=== PATIENT | female | born 2005 | race Caucasian/White ===

== ENCOUNTER 2025-03-09 15:29 | Emergency (ER) | payer SELFPAY ==
--- NOTE | ~2025-03-09 | CT_ITS ---
EXAMINATION: CT abdomen pelvis w con DATE: 03/09/2025 18:30 INDICATION: intractable nausea/vomiting TECHNIQUE: Computed tomography (CT) of the abdomen and pelvis was performed with 100 mL Omnipaque-350 intravenous contrast. Automated exposure control and iterative reconstruction technique were employe d. The dose-length product was 400.43 mGy-cm. COMPARISON: None. FINDINGS: Lower thorax: Unremarkable Liver: Normal. Biliary/Gallbladder: Gallbladder is normal. No bile duct dilation. Pancreas: No mass or duct dilation. Spleen: Normal. Adrenals:No mass. Kidneys: No suspicious mass, obstructing stone, or hydronephrosis. Contrast within the proximal colle cting systems which could obscure small calcifications. GI tract: Moderate distal esophageal and gastric wall edema. Mild diffuse colonic wall edema. No smal l or large bowel dilation. Normal appendix. Mesentery/Peritoneum: No ascites, mass, or free air. Retroperitoneum: No mass. Pelvis: Pelvic organs are within normal limits. IUD, in good position. Soft Tissues: Small uncomplicated appearing fat-containing umbilical hernia. Bones: No acute osseous finding. IMPRESSION: Moderate esophagitis/gastritis. Mild diffuse colonic wall edema as can be seen with colitis. Reviewed, dictated and finalized at location K.
[2025-03-09 15:32] VITALS: BP 118/77; PULSE 107; RESP 26; TEMP 36.3; O2SAT 99
[2025-03-09] MEDS: ONDANSETRON INJ 4 MG/2 ML VIAL IV PUSH (16:07)
[2025-03-09 16:09] LABS: Hematocrit 43.9 % (37.0-47.0); Hemoglobin 15.1 g/dL (12.0-15.0); Immature Granulocyte Percent A 0.4 % (0-0.5); Lymphocytes Absolute Auto 1.41 K/mm3 (0.9-3.2); Mean Corpuscular HGB Conc 34.4 g/dl (32-36); Mean Corpuscular Hemoglobin 29.8 pg (26-34); Mean Corpuscular Volume 86.6 fl (80-100); Nucleated Red Blood Cells Absolute Auto 0.000 K/mm3 (0.0-0.012); Nucleated Red Blood Cells Perc 0.0 % (0.0-0.2); Platelet Count Result 342 k/mm3 (150-375); Red Blood Count 5.07 M/mm3 (4.2-5.4); White Blood Count 9.0 K/mm3 (4.5-10.0)
[2025-03-09] MEDS: LACTATED RINGERS 1,000 ML 999 ML IV CONT (16:28)
[2025-03-09] MEDS: FAMOTIDINE 20 MG/2 ML VIAL IV PUSH (16:29)
[2025-03-09 16:34] LABS: Alanine Aminotransferase 42 U/L (6-35); Albumin Level 5.3 g/dL (3.5-5.1); Alkaline Phosphatase 89 U/L (38-126); Anion Gap 22 mmol/L (4-12); Aspartate Amino Transferase 38 U/L (14-36); Bilirubin,Total 1.1 mg/dL (0.2-1.3); Blood Urea Nitrogen 10 mg/dL (7-17); Calcium 10.5 mg/dL (8.4-10.2); Carbon Dioxide 10 mmol/L (22-30); Chloride 110 mmol/L (98-107); Estimated Glomerular Filt Rate > 60; Glucose 104 mg/dL (65-110); Lipase 29 U/L (23-300); Potassium 3.6 mmol/L (3.4-5.0); Sodium 142 mmol/L (137-145); Total Protein 8.9 g/dL (6.3-8.2)
[2025-03-09] MEDS: METOCLOPRAMIDE HCL INJ 10 MG/2 ML VIAL IV PUSH (17:05)
[2025-03-09 17:13] LABS: BEDSIDEPREGUCG Negative (Negative)
[2025-03-09 17:13] LABS: BEDSIDEPREGUCG Negative (Negative)
[2025-03-09 17:22] LABS: Add Urine Microscopic? YES; Appearance Urine Clear (Clear); Glucose Urine UA Negative (Negative); Leukocyte Esterase Ur Trace LEU/UL (Negative); Nitrate Urine Negative (Negative); Non Pathogenic Casts 0-2; Specific Grav Ur 1.023 (1.001-1.035)
[2025-03-09] MEDS: cefTRIAXone 2 GM in SODIUM CHLORIDE 0.9% IV 100 ML 200 ML IVPB (17:55)
[2025-03-09] MEDS: PANTOPRAZOLE SODIUM IV 40 MG VIAL IV PUSH (19:12)
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
== END 2025-03-09 19:17 | disposition home or self-care (01) ==
PROVIDERS: Emergency Medicine; Emergency Provider Emergency Medicine
DX: K20.90 Esophagitis, unspecified without bleeding (principal); R11.2 Nausea with vomiting, unspecified
CPT/HCPCS: 36415; 74177; 80053; 81001; 81025; 83690; 85025; 96361; 96365; 96375; 99284; J0696; J1200; J1790; J2405; J2470; J2765; J7120; Q9967

== ENCOUNTER 2025-04-01 18:24 | Emergency (ER) | payer OTHER, SELFPAY ==
--- NOTE | ~2025-04-01 | CT_ITS ---
History: Trauma PROCEDURE: CT lumbar spine without intravenous contrast. COMPARISON: None TECHNIQUE: Multiple contiguous axial images of the lumbar spine were performed without the administration of int ravenous contrast. DLP: 515 mGy-cm FINDINGS: Preservation of the alignment of the lumbar spine is noted. No disc space narrowing is identified. No acute compression fractures are present. No soft tissue abnormality is noted. Impression: No acute compression fracture or significant soft tissue abnormality is noted. Reviewed, dictated and finalized at location A. Impression: No acute compression fracture or significant soft tissue abnormality is noted.
--- NOTE | ~2025-04-01 | CT_ITS ---
History: Trauma PROCEDURE: CT head without contrast. COMPARISON: None TECHNIQUE: Axial imaging of the head performed from the skull base to the vertex without IV contrast. Sagittal a nd coronal reformations obtained. DLP: 681 mGy-cm FINDINGS: The ventricles are normal in size, shape and position. There is no mass, mass effect or midline shift. There is no abnormal extra-axial fluid collection or intracranial hemorrhage. Visualized paranasal sinuses are clear. The mastoid air cells are well aerated. No acute displaced fractures within the overlying cranium. Impression: No acute intracranial hemorrhage or suspicious mass effect. Reviewed, dictated and finalized at location A. Impression: No acute intracranial hemorrhage or suspicious mass effect.
--- NOTE | ~2025-04-01 | CT_ITS ---
History: Trauma PROCEDURE: CT cervical spine without intravenous contrast. COMPARISON: None TECHNIQUE: Multiple contiguous axial images of the cervical spine were performed without the administration of i ntravenous contrast. DLP: 456 mGy-cm FINDINGS: Straightening and slight reversal of the normal curvature of the cervical spine is identified, likely muscular in origin. No acute fractures are present. The bilateral lung apices are unremarkable. No soft tissue abnormality is present. The airway is patent. Impression: Straightening and slight reversal of the normal curvature of the cervical spine, likely muscular in o rigin. No acute fracture. Reviewed, dictated and finalized at location A. Impression: Straightening and slight reversal of the normal curvature of the cervical spine , likely muscular in origin. No acute fracture.
--- OUTSIDE RECORDS SUMMARY | 2025-04-01 18:26 | XMS_ITS ---
Author Organization Unknown ENCOUNTERS Encounter Performer Location Date Diagnosis Diagnosis Status Pre Admit [id number] [place] [address] [id number] Emergency [facility] [id number] [place] [address] [id number] ANNABEL Pre Admit [facility] [id number] [address] [id number] *Note: Encounters from your own facility or health system may be excluded. Allergies, Adverse Reactions, Alerts Allergen Type Severity Identification Date Medications Name Date Quantity Days Supplied [facility] Number
[2025-04-01 18:27] VITALS: BP 117/87; PULSE 97; RESP 16; TEMP 36.8; O2SAT 100
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
[2025-04-01] MEDS: CYCLOBENZAPRINE HCL 10 MG TABLET PO (20:18)
[2025-04-01] MEDS: HYDROcodone/acetaminophen (*CRX) 5-325 MG TABLET 1 TAB PO (20:18)
[2025-04-01 20:40] LABS: BEDSIDEPREGUCG Negative (Negative)
[2025-04-01 20:44] VITALS: BP 117/74; PULSE 68; RESP 20; O2SAT 100
--- NOTE | 2025-04-01 22:57 | PC.NURSE ---
2252-PER VERBAL ORDER OF PROVIDER, C-COLLAR REMOVED. PATIENT STATES SHE IS HAVING AN ANXIETY ATTACK. PATIENT TEARFUL. UPDATE TO PROVIDER.
[2025-04-01 23:00] VITALS: BP 110/70; PULSE 78; RESP 18; O2SAT 100
[2025-04-01] MEDS: ALPRAZolam (*CRX) 0.5 MG TABLET PO (23:04)
== END 2025-04-01 23:18 | disposition home or self-care (01) ==
PROVIDERS: Emergency Provider Emergency Medicine
DX: R51.9 Headache, unspecified (principal); M54.2 Cervicalgia; M54.50 Low back pain, unspecified; V89.2XXA Person injured in unspecified motor-vehicle accident, traffic, initial encounter
CPT/HCPCS: 70450; 72125; 72131; 81025; 99284; A9270